=== PATIENT | female | born 1980 | race American Indian/Alaskan Native ===

== ENCOUNTER 2021-05-25 07:21 | Emergency (ER) | payer SELFPAY ==
[2021-05-25] MEDS ORDERED: predniSONE 20 MG TAB PO ONE (09:48)
--- NOTE | 2021-05-25 09:49 | Emergency Department Report ---
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 She states Tylenol and ibuprofen are not helping. She rates her pain as 8/10 in severity. She denies any cough, fever/chills/sweats, chest pain, shortness of breath, or recent known sick contacts. -: Sudden - Related Data Previous Rx's Medication Instructions Recorded Last Taken Type Levocetirizine Dihydrochloride 5 mg PO QPM #10 tablet 05/25/21 Unknown Rx [Xyzal] Prednisone [predniSONE 10 mg 10 mg PO .TAPER #1 tab.ds.pk 05/25/21 Unknown Rx (6-Day Pack, 21 Tabs)] Allergies Allergy/AdvReac Type Severity Reaction Status Date / Time clindamycin Allergy Swelling Verified 05/25/21 07:24 promethazine [From Phenergan] Allergy Swelling Verified 05/25/21 07:24 ED Review of Systems ROS: Stated complaint: SORE THROAT Other details as noted in HPI Constitutional: denies: chills, diaphoresis, fever, malaise, weakness ENT: throat pain, other (Loss of voice) Respiratory: denies: cough Gastrointestinal: denies: abdominal pain, nausea ED Past Medical Hx - Past Medical History Previous Medical History?: No - Surgical History Past Surgical History?: No - Medications Home Medications: Home Medications Medication Instructions Recorded Confirmed Last Taken Type Levocetirizine Dihydrochloride 5 mg PO QPM #10 tablet 05/25/21 Unknown Rx [Xyzal] Prednisone [predniSONE 10 mg 10 mg PO .TAPER #1 tab.ds.pk 05/25/21 Unknown Rx (6-Day Pack, 21 Tabs)] ED Physical Exam - General Limitations: No Limitations General appearance: alert, in no apparent distress - Head Head exam: Present: atraumatic, normocephalic - Eye Eye exam: Present: normal appearance - Expanded ENT Exam Expanded Mouth exam: Absent: drooling, trismus, muffled voice Throat exam: Positive: tonsillar erythema, tonsillomegaly (Mild bilateral) - Neck Neck exam: Present: full ROM, lymphadenopathy (Mild, tender submandibular) - Respiratory Respiratory exam: Present: normal lung sounds bilaterally. Absent: respiratory distress - Cardiovascular Cardiovascular Exam: Present: regular rate - Neurological Exam Neurological exam: Present: alert, oriented X3 - Psychiatric Psychiatric exam: Present: normal affect, normal mood - Skin Skin exam: Present: warm, dry, intact, normal color. 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 She states Tylenol and ibuprofen are not helping. She rates her pain as 8/10 in severity. She denies any cough, fever/chills/sweats, chest pain, shortness of breath, or recent known sick contacts. Rapid strep is negative. No significant swelling of the tonsils or exudate noted on exam. Patient does have laryngitis. Will treat as such. Recommend follow-up with PCP in 3 to 5 days. Strict return precautions were discussed in detail with patient who verbalizes understanding. Also recommend patient gets COVID-19 testing within the next 24 to 48 hours and quarantine until her results are back Critical care attestation.: If time is entered above; I have spent that time in minutes in the direct care of this critically ill patient, excluding procedure time. ED Disposition Clinical Impression: Sore throat, Laryngitis Disposition: 01 HOME / SELF CARE / HOMELESS Is pt being admited?: No Condition: Stable Instructions: Laryngitis, [id number] Prescriptions: Prednisone [predniSONE 10 mg (6-Day Pack, 21 Tabs)] 10 mg PO .TAPER #1 tab.ds.pk Levocetirizine Dihydrochloride [Xyzal] 5 mg PO QPM #10 tablet Referrals: PRIMARY CARE, [Primary Care Provider] - 3-5 Days Forms: Work/School Release Form(ED)
[2021-05-25 12:16] VITALS: BP 110/72
== END 2021-05-25 12:18 | disposition home or self-care (01) ==
LOC: ED 07:21
DX: J04.0 Acute laryngitis (principal); J02.9 Acute pharyngitis, unspecified; Z88.1 Allergy status to other antibiotic agents; Z88.8 Allergy status to other drugs, medicaments and biological substances; Z79.899 Other long term (current) drug therapy
CPT/HCPCS: 87116; 87430; 99283; J7512